=== PATIENT | female | born 1995 | race Caucasian/White ===

== ENCOUNTER 2018-08-08 19:58 | Emergency (ER) | payer OTHER ==
[2018-08-08 20:04] VITALS: BMI 17.9
[2018-08-08 21:01] LABS: BASO % 0.2 % (0-2.0); HEMATOCRIT 37.1 % (32.4-45.2); HEMOGLOBIN 12.9 GM/dl (10.7-15.3); MCH 29.3 pg (25.7-33.7); MCHC 34.7 g/dl (32.0-36.0); MEAN CELL VOLUME 84.4 fl (80-96); MEAN PLT VOLUME 8.6 fl (7.5-11.1); MONO % 4.9 % (3.8-10.2); NEUT % 86.9 % (42.8-82.8); PLATELET COUNT 240 K/MM3 (134-434); RBC 4.39 M/mm3 (3.60-5.2); RDW 12.4 % (11.6-15.6); WHITE BLOOD COUNT 10.7 K/mm3 (4.0-10.8)
[2018-08-08 21:05] LABS: ALK PHOS 32 U/L (32-92); ANION GAP 8 MMOL/L (8-16); BILIRUBIN,TOTAL 0.9 mg/dl (0.2-1.0); BLOOD UREA NITROGEN 5 mg/dl (7-18); CALCIUM 8.7 mg/dl (8.4-10.2); CHLORIDE 100 mmol/L (98-107); CO2 23 mmol/L (22-28); CREATININE 0.6 mg/dl (0.6-1.3); GLUCOSE,RANDOM 97 mg/dl (74-106); POTASSIUM 3.4 mmol/L (3.5-5.1); SGOT/AST 20 U/L (10-42); SGPT/ALT 12 U/L (10-40); SODIUM 131 mmol/L (136-145); TOT PROT 7.4 g/dl (6.4-8.3)
[2018-08-08 21:30] LABS: HCG,QUALITATIVE URINE Negative
[2018-08-08 21:35] LABS: URINE APPEARANCE Clear; URINE BILIRUBIN Negative (NEGATIVE); URINE COLOR Yellow; URINE GLUCOSE (UA) Negative (NEGATIVE); URINE KETONE 1+ (NEGATIVE); URINE LEUK ESTERASE 3+ (NEGATIVE); URINE NITRITE Negative (NEGATIVE); URINE PROTEIN Negative (NEGATIVE); URINE UROBILINOGEN 0.2 (0.2-1.0)
[2018-08-08 21:44] VITALS: BP 119/76; PULSE 110; TEMP 98.5
[2018-08-08] MEDS ORDERED: KCL 10 MEQ IVPB 10 MEQ/100 ML INFUS.BAG IVPB SCH (21:45)
[2018-08-08 21:49] LABS: EPI CELLS FEW /HPF; URINE BACTERIA 3+ /hpf (NEGATIVE)
[2018-08-08] MEDS ORDERED: KCL 10 MEQ IVPB 10 MEQ/100 ML INFUS.BAG IVPB ONE (21:57)
--- NOTE | 2018-08-08 22:25 | PDOC ---
History of Present Illness - General History Source: Patient, Family Exam Limitations: No Limitations - History of Present Illness Initial Comments: 08/08/18 22:26 The patient is a 23 year old female, with a significant past medical history of IBS, who presents to the ED complaining of abdominal pain, fever and diarrhea for the past 2 days. She describes her diarrhea as orange colored but when she was here in the ED she noticed some blood in the stool. She went to an urgent care today who advised her to come to the ED for further evaluation. She reports a total of 10 bowel movements. She notes that her fever has been as high as 103 F. She reports that she had reheated Turkish food 2 days ago prior to her symptoms starting. She notes that her family ate the macedonian food the day prior with no symptoms. She denies any recent travel other than a trip to [place] 1 month ago. The patient denies chest pain, shortness of breath, headache and dizziness. Denies chills, vomiting, or constipation. Denies dysuria, frequency, urgency and hematuria. Allergies: none Past surgical history: none reported Social History: No alcohol, tobacco or drug use reported <Beltran Santos - Last Filed: 08/08/18 23:26> <Susanne Lin - Last Filed: 08/09/18 04:43> - General Chief Complaint: Diarrhea Stated Complaint: FEVER/DIARRHEA Time Seen by Provider: 08/08/18 20:12 Past History <Beltran Santos - Last Filed: 08/08/18 23:26> - Past Medical History COPD: No GI Disorders: Yes (IBS) Other medical history: CHRONIC BACK/LEG PAIN - Suicide/Smoking/Psychosocial Hx Smoking History: Never smoked <Susanne Lin - Last Filed: 08/09/18 04:43> - Past Medical History Allergies/Adverse Reactions: Allergies Allergy/AdvReac Type Severity Reaction Status Date / Time No Known Allergies Allergy Unverified 08/08/18 19:59 Home Medications: Ambulatory Orders Azithromycin [Zithromax Tri-Mike (3 DAYS) -] 500 mg PO DAILY #3 tablet 08/08/18 Ibuprofen [Advil -] 400 mg PO ONCE 08/08/18 Review of Systems - Review of Systems Able to Perform ROS?: Yes Comments:: 08/08/18 22:26 GENERAL/CONSTITUTIONAL: (+) Fever. No chills. No weakness. HEAD, EYES, EARS, NOSE AND THROAT: No change in vision. No ear pain or discharge. No sore throat. GASTROINTESTINAL: (+) Abdominal pain and diarrhea. No nausea, vomiting, or constipation. GENITOURINARY: No dysuria, frequency, or change in urination. CARDIOVASCULAR: No chest pain or shortness of breath. RESPIRATORY: No cough, wheezing, or hemoptysis. MUSCULOSKELETAL: No joint or muscle swelling or pain. No neck or back pain. SKIN: No rash NEUROLOGIC: No headache, vertigo, loss of consciousness, or change in strength/ sensation. ENDOCRINE: No increased thirst. No abnormal weight change. HEMATOLOGIC/LYMPHATIC: No anemia, easy bleeding, or history of blood clots. ALLERGIC/IMMUNOLOGIC: No hives or skin allergy. <Beltran Santos - Last Filed: 08/08/18 23:26> *Physical Exam - Vital Signs Last Vital Signs Temp Pulse Resp BP Pulse Ox 98.5 F 110 H 16 119/76 100 08/08/18 21:43 08/08/18 21:43 08/08/18 21:43 08/08/18 21:43 08/08/18 21:43 - Physical Exam Comments: 08/08/18 22:26 Constitutional: Awake, alert, oriented. No acute distress. Head: Normocephalic. Atraumatic Eyes: PERRL. EOMI. Conjunctivae are not pale. ENT: (+) Dry Mucous Membrane . Posterior pharynx without exudates or erythema. Uvula midline. Neck: Supple. Full ROM. No lymphadenopathy. Cardiovascular: Regular rate. Regular rhythm. S1, S2 regular. Distal pulses are 2+ and symmetric. Pulmonary/Chest: No evidence of respiratory distress. Clear to auscultation bilaterally No wheezing, rales or rhonchi. Abdominal: (+) Left lower quadrant tenderness. Soft and non-distended. No rebound, guarding or rigidity. No organomegaly. No palpable masses. Good bowel sounds. Back: No CVA tenderness. Musculoskeletal: No edema. No cyanosis. No clubbing. Full range of motion in all extremities. Nocalf tenderness. Radial/pedal pulses are intact and 2+ bilaterally Skin: Skin is warm and dry. No petechiae. No purpura. Neurological: Alert and oriented to person, place, and time. Cranial nerves II -XII are grossly intact. Normal speech. Strength is grossly symmetric. No sensory deficits. Psychiatric: Good eye contact. Normal interaction, affect and behavior. <Beltran Santos - Last Filed: 08/08/18 23:26> - Vital Signs Last Vital Signs Temp Pulse Resp BP Pulse Ox 98.5 F 110 H 16 119/76 100 08/08/18 21:43 08/08/18 21:43 08/08/18 21:43 08/08/18 21:43 08/08/18 21:43 <RileyHumairaSusanne J - Last Filed: 08/09/18 04:43> ED Treatment Course - LABORATORY CBC & Chemistry Diagram: 08/08/18 20:39 08/08/18 20:39 - ADDITIONAL ORDERS Additional order review: Laboratory Results 08/08/18 08/08/18 21:17 20:39 Sodium 131 L Potassium 3.4 L Chloride 100 Carbon Dioxide 23 Anion Gap 8 BUN 5 L Creatinine 0.6 Creat Clearance w eGFR > 60 Random Glucose 97 Calcium 8.7 Total Bilirubin 0.9 AST 20 ALT 12 Alkaline Phosphatase 32 Total Protein 7.4 Albumin 4.0 Urine Color Yellow Urine Appearance Clear Urine pH 6.0 Ur Specific [place] <= 1.005 L Urine Protein Negative Urine Glucose (UA) Negative Urine Ketones 1+ H Urine Blood Trace-intact H Urine Nitrite Negative Urine Bilirubin Negative Urine Urobilinogen 0.2 Ur Leukocyte Esterase 3+ H Urine RBC 2-5 Urine WBC 10-20 Ur Epithelial Cells Few Urine Bacteria 3+ Urine HCG, Qual Negative 08/08/18 20:39 RBC 4.39 MCV 84.4 MCHC 34.7 RDW 12.4 MPV 8.6 Neutrophils % 86.9 H Lymphocytes % 8.0 Monocytes % 4.9 Eosinophils % 0.0 Basophils % 0.2 <Beltran Santos - Last Filed: 08/08/18 23:26> - LABORATORY CBC & Chemistry Diagram: 08/08/18 20:39 08/08/18 20:39 - ADDITIONAL ORDERS Additional order review: Laboratory Results 08/08/18 08/08/18 21:17 20:39 Sodium 131 L Potassium 3.4 L Chloride 100 Carbon Dioxide 23 Anion Gap 8 BUN 5 L Creatinine 0.6 Creat Clearance w eGFR > 60 Random Glucose 97 Calcium 8.7 Total Bilirubin 0.9 AST 20 ALT 12 Alkaline Phosphatase 32 Total Protein 7.4 Albumin 4.0 Urine Color Yellow Urine Appearance Clear Urine pH 6.0 Ur Specific [place] <= 1.005 L Urine Protein Negative Urine Glucose (UA) Negative Urine Ketones 1+ H Urine Blood Trace-intact H Urine Nitrite Negative Urine Bilirubin Negative Urine Urobilinogen 0.2 Ur Leukocyte Esterase 3+ H Urine RBC 2-5 Urine WBC 10-20 Ur Epithelial Cells Few Urine Bacteria 3+ Urine HCG, Qual Negative 08/08/18 20:39 RBC 4.39 MCV 84.4 MCHC 34.7 RDW 12.4 MPV 8.6 Neutrophils % 86.9 H Lymphocytes % 8.0 Monocytes % 4.9 Eosinophils % 0.0 Basophils % 0.2 <Susanne Lin - Last Filed: 08/09/18 04:43> Progress Note - Progress Note Progress Note: Documentation has been prepared under my direction and personally reviewed by me in its entirety. I attest that this documented accurately reflects all work, treatment, procedures and medical decision making performed by me. <Susanne Lin - Last Filed: 08/09/18 04:43> Medical Decision Making - Medical Decision Making As noted above, this 23-year-old woman with a history of irritable bowel syndrome but no other significant abnormalities presents with a few day history of diarrhea without nausea/vomiting. This occurred after eating reheated Turkish food. No recent travel or exposure to other people with diarrhea. Of note, over the last few hours, patient has developed rosie blood in her diarrhea. Exam as noted. Patient received normal saline IV hydration, with CBC/chemistry profile/UA/PGU obtained. Results not significantly abnormal except for potassium of 3.4(10 mEq KCl IV replacement). Renal function as well as remainder of the electrolytes are essentially normal. CBC showed a mild increase in neutrophils but a normal WBC count. Urinalysis was consistent with UTI (although patient denied any symptoms of UTI) with 3+ bacteria/few epi/3+ LE/10-20 WBC. Urine C& S sent. Because of the patient's rosie blood in the stool over the last day, patient will be treated with azithromycin 500 mg today and for the next 2 days, first dose given here in the ER. Patient should rest, drink plenty of fluids and continue light diet. She should return to the emergency room if she has worsening pain, develops high fever or vomiting. She should plan to follow up with her general doctor (or looping inspector) within the next few days. <Susanne Lin - Last Filed: 08/09/18 04:43> *DC/Admit/Observation/Transfer - Attestations Scribe Attestion: 08/08/18 22:26 Documentation prepared by Beltran Santos, acting as nurses medical assistants phlebotomists for Susanne Lin MD <Beltran Santos - Last Filed: 08/08/18 23:26> <Susanne Lin - Last Filed: 08/09/18 04:43> Diagnosis at time of Disposition: Diarrhea Qualifiers: Diarrhea type: unspecified type Qualified Code(s): R19.7 - Diarrhea, unspecified - Discharge Dispostion Disposition: HOME Condition at time of disposition: Stable - Prescriptions Prescriptions: Azithromycin [Zithromax Tri-Mike (3 DAYS) -] 500 mg PO DAILY #3 tablet - Referrals Referrals: Genna Julien MD [Primary Care Provider] - - Patient Instructions Printed Discharge Instructions: Diarrhea Additional Instructions: rest drink plenty of fluids Azirhromycin 500mg daily for the next 3 days no school until Sunday, Aug 14 followup with your doctor if pain/bloody stool persists return to ER if symptoms are severe - Post Discharge Activity Forms/Work/School Notes: Back to School
[2018-08-08] MEDS ORDERED: AZITHROMYCIN 250 MG TABLET PO ONE (23:16)
[2018-08-08] MEDS ORDERED: AZITHROMYCIN 250 MG TABLET ONE (23:17)
== END 2018-08-08 23:23 | disposition home or self-care (01) ==
LOC: FER 19:58
PROC: 3E033GC Introduction of Other Therapeutic Substance into Peripheral Vein, Percutaneous Approach (ICD-10-PCS; principal; 2018-08-08)
DX: R19.7 Diarrhea, unspecified (principal); K58.9 Irritable bowel syndrome, unspecified
CPT/HCPCS: 36415; 80053; 81003; 81015; 84703; 85025; 87077; 87086; 99283-25

== ENCOUNTER 2022-11-17 11:37 | Day surgery (SDC) | payer OTHER ==
[2022-11-09 16:12] VITALS: BMI 17.4
[2022-11-17 13:03] VITALS: TEMP 97.7
[2022-11-17 13:14] VITALS: BP 121/76; PULSE 84; RESP 16
== END 2022-11-17 13:30 | disposition home or self-care (01) ==
LOC: FASU-ENDO 11:37
PROVIDERS: ATTEND Internal Medicine Gastroenterology
PROC: 0DJD8ZZ Inspection of Lower Intestinal Tract, Via Natural or Artificial Opening Endoscopic (ICD-10-PCS; principal; 2022-11-17 12:38)
DX: Z12.11 Encounter for screening for malignant neoplasm of colon (principal); K92.1 Melena; K64.1 Second degree hemorrhoids; K64.8 Other hemorrhoids
CPT/HCPCS: 81025